=== PATIENT | female | born 2000 | race Hispanic/Latino ===

== ENCOUNTER 2019-08-16 13:06 | Emergency (ER) | payer OTHER, SELFPAY ==
[2019-08-16] MEDS ORDERED: Dexamethasone 10 MG/ML VIAL ONE (13:09)
[2019-08-16] MEDS ORDERED: diphenhydrAMINE 50 MG/ML VIAL ONE (13:09)
[2019-08-16] MEDS ORDERED: Famotidine/PF 20 mg/2ml Vial ONE (13:09)
[2019-08-16] MEDS ORDERED: Ondansetron PF 4 MG/2 ML Vial ONE (13:14)
== END 2019-08-16 15:45 | disposition home or self-care (01) ==
LOC: ERS 13:06
DX: T78.40XA Allergy, unspecified, initial encounter (principal); F31.9 Bipolar disorder, unspecified
CPT/HCPCS: 96374; 96375; J1100; J1200; J2405; S0028